=== PATIENT | male | born 1935 | race Caucasian/White ===

== ENCOUNTER → 2017-11-19 | Outpatient (CLI) | payer MEDICARE ==
[~2017-11-19] MED LIST: ASPI-586 PO; GLIM4TAB PO; HYDR-34 PO; LEVO137T2 PO; METF500T5 PO; OMEP20TA7 PO; PANT40TA3 PO; SIMV20TA3 PO; SITA100T12 PO; TRIA1CAP4 PO
--- NOTE | 2017-11-19 11:02 | Diagnostic Imaging Report ---
INDICATION: Right upper quadrant pain. TECHNIQUE: Gallbladder sonography performed in routine fashion. FINDINGS: The liver shows normal echogenicity and no focal lesions. Portal vein is patent with flow in the normal direction toward the liver. Gallbladder shows no significant wall thickening. There is a question of stone or stones in the gallbladder neck. Common duct was not well-seen due to overlying gas. Pancreas is also obscured due to overlying gas. Right kidney measured 11.3 cm in length. There is a 2.9 cm cyst in the right kidney superiorly and a small 1 cm cyst inferiorly in the right kidney. There is no free fluid. IMPRESSION: Limited study. There appears to be a stone or stones in the gallbladder neck, there does not appear to be significant gallbladder wall thickening. The common duct was not well seen. If there is clinical suspicion of cholecystitis, consider nuclear hepatobiliary study. There are benign cysts in the right kidney. There is no ascites. Dictated by: Dictated on workstation # [id number]
== END ==
LOC: RAD 08:35
PROVIDERS: ATTEND Surgery
DX: N28.1 Cyst of kidney, acquired (principal)
CPT/HCPCS: 76705

== ENCOUNTER 2017-12-01 05:32 | Outpatient (CLI) | payer MEDICARE ==
[~2017-12-01] VITALS: Ht 177.8 cm; Wt 76.7 kg
[2017-12-01] MEDS ORDERED: TRIA1CAP4 PO (10:54)
[2017-12-01] MEDS ORDERED: PANT40TA3 PO (10:54)
[2017-12-01] MEDS ORDERED: ASPI-586 PO (10:54)
[2017-12-01] MEDS ORDERED: SITA100T12 PO (10:54)
[2017-12-01] MEDS ORDERED: GLIM4TAB PO (10:54)
[2017-12-01] MEDS ORDERED: METF500T5 PO (10:54)
[2017-12-01] MEDS ORDERED: SIMV20TA3 PO (10:54)
[2017-12-01] MEDS ORDERED: OMEP20TA7 PO (10:54)
[2017-12-01] MEDS ORDERED: LEVO137T2 PO (10:54)
== END 2017-12-01 12:08 | disposition home or self-care (01) ==
LOC: PREOP 05:32
PROVIDERS: ATTEND Surgery
DX: Z01.818 Encounter for other preprocedural examination (principal)

== ENCOUNTER 2017-12-03 06:26 | Day surgery (SDC) | payer MEDICARE ==
[~2017-12-03] VITALS: Ht 177.8 cm; Wt 77.1 kg
[~2017-12-03 06:26] MED LIST changes: -HYDR-34 PO
[2017-12-03 06:45] VITALS: BP 137/78
[2017-12-03] MEDS ORDERED: CLINDAMYCIN 600 MG/50 ML IVPB 50 ML IV ONE (06:45)
[2017-12-03] MEDS: LACTATED RINGERS 1,000 ML IV PRN ×2 (07:02→10:28)
[2017-12-03 07:09] LABS: BASOPHILS % (AUTO) 0 % (0-10); EOSINOPHILS # (AUTO) 0.1 10^3/uL (0.0-0.3); EOSINOPHILS % (AUTO) 1 % (0-10); HEMATOCRIT 42 % (40-54); HEMOGLOBIN 14.4 G/DL (13.3-17.7); LYMPHOCYTES # (AUTO) 1.1 X 10^3 (1.0-4.0); LYMPHOCYTES % (AUTO) 16 % (12-44); MEAN CORPUSCULAR HEMOGLOBIN 27 PG (25-34); MEAN CORPUSCULAR HGB CONC 34 G/DL (32-36); MEAN CORPUSCULAR VOLUME 79 FL (80-99); MEAN PLATELET VOLUME 10.2 FL (7.4-10.4); MONOCYTES # (AUTO) 0.6 X 10^3 (0.0-1.0); MONOCYTES % (AUTO) 9 % (0-12); NEUTROPHILS # (AUTO) 5.2 X 10^3 (1.8-7.8); NEUTROPHILS % (AUTO) 74 % (42-75); PLATELET COUNT 165 10^3/uL (130-400); RED BLOOD COUNT 5.33 10^6/uL (4.35-5.85); RED CELL DISTRIBUTION WIDTH 14.7 % (10.0-14.5)
--- NOTE | 2017-12-03 08:09 | Progress Note-Pre Operative ---
Pre-Operative Progress Note H&P Reviewed The H&P was reviewed, patient examined and no changes noted. Date Seen by Provider: Dec 03, 2017 Time Seen by Provider: 08:00 Date H&P Reviewed: Dec 03, 2017 Time H&P Reviewed: 08:05 Pre-Operative Diagnosis: Chronic Calculous cholecystitis BECKY BARTHOLOMEW APRN Dec 03, 2017 8:09 am
[2017-12-03] MEDS ORDERED: ACETAMINOPHEN 325 MG TABLET PO PRN (08:15)
[2017-12-03] MEDS ORDERED: ONDANSETRON 4 MG/2 ML (SDV) Z0FRAN IVP PRN ×2 (08:15→11:30)
[2017-12-03] MEDS ORDERED: morphine INJ 10 MG/ML 1ML (SYR OR VIAL) IVP PRN ×2 (08:15→11:30)
[2017-12-03] MEDS ORDERED: HYDROcodone/APAP 5 MG/325 MG (LORTAB) TAB PO ONE (08:15)
[2017-12-03] MEDS ORDERED: BUP/EPI 0.5% 1:200,000 (SENSORCAINE) 30 ML VIAL ONE (09:00)
[2017-12-03] MEDS ORDERED: fentaNYL INJECTION 100 MCG/2 ML AMP ONE ×2 (09:24→10:53)
[2017-12-03] MEDS ORDERED: ONDANSETRON 4 MG/2 ML (SDV) Z0FRAN ONE (09:24)
[2017-12-03] MEDS ORDERED: DEXAMETHASONE 10 MG/ML (DECADRON) 1 ML VIAL ONE (09:24)
[2017-12-03] MEDS ORDERED: LIDOCAINE JELLY 2% (XYLOCAINE) 5 ML TUBE ONE (09:24)
[2017-12-03] MEDS ORDERED: LIDOCAINE PF 2% 5 ML (XYLOCAINE) VIAL ONE (09:24)
[2017-12-03] MEDS ORDERED: proPOfol 200 MG/20 ML (DIPRIVAN) VIAL IV ONE (09:24)
[2017-12-03] MEDS ORDERED: SEVOFLURANE (ULTANE) 15 ML INHAL SOLN ONE ×4 (09:24→10:51)
[2017-12-03] MEDS ORDERED: MIDAZOLAM 2 MG/2 ML (VERSED) VIAL ONE (09:24)
[2017-12-03] MEDS ORDERED: ROCURONIUM 10 MG/ML 5 ML SYRINGE IV ONE (09:26)
[2017-12-03] MEDS ORDERED: FAMOTIDINE 20MG/2ML IV (PEPCID) IVP ONE (09:30)
[2017-12-03] MEDS ORDERED: GLYCOPYRROLATE 0.2 MG/ML (ROBINUL) 2 ML VIAL ONE (10:59)
[2017-12-03] MEDS ORDERED: NEOSTIGMINE 1 MG/ML 5 ML SYRINGE ONE (10:59)
--- NOTE | 2017-12-03 11:09 | Progress Note-Post Operative ---
Post-Operative Progess Note Surgeon (s)/Psychologist Counseling (s) Surgeon DAMRAIS RENEE MD Psychologist Counseling: josé manuel ochoa LEAD BASED PAINT TECHNICIAN Pre-Operative Diagnosis Chronic Calculous cholecystitis Post-Operative Diagnosis same Procedure & Operative Findings Date of Procedure 12/03/17 Procedure Performed/Findings laparoscopic cholecystectomy Anesthesia Type GET Estimated Blood Loss Estimated blood loss (mL): minimal Specimens/Packing Specimens Removed gallbladder DAMARIS RENEE MD Dec 03, 2017 11:09 am
[2017-12-03] MEDS ORDERED: HYDR-34 PO (11:12)
--- NOTE | 2017-12-03 11:13 | Discharge Inst-Surgical ---
D/C Lap Instructions-VÍCTOR New, Converted, or Re-Newed RX: RX on Chart Follow Up Appt in 2 weeks Activity as tolerated No driving for 24 hours No driving while on pain medications Incentive Spirometry use every 2 hours while awake Regular Diet Symptoms to Report: Fever over 101 degree F, Nausea/Vomiting Infection Signs and Symptoms to report: Increased redness, Foul odor of wound, Increased drainage Bathing instructions: May shower Operative Area Clean/Dry; Keep incision clean/dry If any problems/questions: Contact your physician or go to Emergency Room DAMARIS RENEE MD Dec 03, 2017 11:13 am
[2017-12-03 12:10] VITALS: BP 143/82
[2017-12-03 12:40] VITALS: BP 143/77
[2017-12-03 13:20] VITALS: BP 142/86
[2017-12-03 13:35] VITALS: BP 142/86
--- NOTE | 2017-12-03 13:48 | Anesthesia-General Post-Op ---
General Patient Condition Mental Status/LOC: Same as Preop Cardiovascular: Satisfactory Nausea/Vomiting: Absent Respiratory: Satisfactory Pain: Controlled Complications: Absent Post Op Complications Complications None Follow Up Care/Instructions Patient Instructions None needed. Anesthesia/Patient Condition Patient Condition Patient is doing well, no complaints, stable vital signs, no apparent adverse anesthesia problems. No complications reported per nursing. FAUZIA CANTU CRNA Dec 03, 2017 13:48
--- NOTE | 2017-12-03 16:18 | OPERATIVE REPORT ---
DATE OF SERVICE: 12/03/2017 ATTENDING PRIMARY CARE PHYSICIAN: Dr. Ross. PREOPERATIVE DIAGNOSIS: Symptomatic chronic calculous cholecystitis. POSTOPERATIVE DIAGNOSIS: Symptomatic chronic calculous cholecystitis. PROCEDURE PERFORMED: Laparoscopic cholecystectomy. SURGEON: Damaris Renee MD. SEDIMENTATIONIST: Luis Alberto STREET ANESTHESIA: General endotracheal. ESTIMATED BLOOD LOSS: Minimal. FINDINGS: Gallbladder wall inflammation as well as multiple gallstones. A moderate sized hiatal hernia was also identified. DISPOSITION: The patient tolerated the procedure well. INDICATIONS: The patient is an 82-year-old male with a known history of gastroesophageal reflux disease as well as a hiatal hernia identified on an EGD which was done this year. He also underwent a colonoscopy where 2 polyps identified, one in the descending colon and one in the transverse colon, which were both benign tubular adenomas. She has had pain in the upper abdomen as well as episodes of nausea and regurgitation, however, the regurgitation is not new. Ultrasound was performed which did show multiple gallstones. DESCRIPTION OF PROCEDURE: The patient was brought to the operating room, laid supine on the table. After adequate IV pain and sedating medications and general endotracheal intubation, the abdomen was prepped and draped in standard surgical fashion. A 0.5% Marcaine with epinephrine was then used to incise overlying skin in the left upper abdominal quadrant. A small transverse skin incision made using a 15-blade. An #0 silk suture was applied to the medial aspect of the incision for retraction and a Veress needle inserted with a low opening pressure of 0 mmHg. The abdomen was then desufflated to 15 mmHg pressure. Veress needle removed and a 5 mm Xcel trocar placed followed by a 5 mm 45 degree angle laparoscope visualizing the peritoneal cavity. A 4-quadrant abdominal exploration was performed. There was gallbladder wall dilatation as well as omental adhesions to the gallbladder consistent with chronic cholecystitis. Liver appeared normal. There was a moderate-sized hiatal hernia identified as well. Under direct visualization, we then proceed to place a supraumbilical 10 mm port after the skin and peritoneal lining were anesthetized using 0.5% Marcaine with epinephrine and a transverse skin incision made using 15-blade. In a similar manner, a right upper abdominal quadrant 5 mm port was placed. The patient was then placed in reverse Trendelenburg position as well as plane right side up, left side down. The fundus of the gallbladder was retracted anteriorly and superiorly. The omental adhesions were then taken down using electrocautery and hook instrument. The hepatoduodenal ligament was then opened using electrocautery and hook instrument as well as blunt dissection. The entire critical view of safety was identified including the cystic duct and artery as the only two structures going into the gallbladder, triangle of Calot as well as the cystic plate behind the proximal gallbladder. A timeout was then taken and the cystic duct and artery were then clipped proximally, distally and cut with EndoShears. The gallbladder was then dissected off the liver bed using electrocautery and the hook instrument with visualization of good hemostasis as well as no leaking ducts of Luschka. The gallbladder was removed through the 10 mm port site using an EndoCatch bag. The 10 mm port site fascia and peritoneum were then closed under direct visualization using a Stoney-Luna device and an #0 Vicryl suture. The abdomen was then desufflated and the remaining ports removed. All skin incisions were closed using 4-0 Monocryl running subcuticular sutures. Wounds were then cleaned and covered. The patient tolerated the procedure well. We will start IV and oral pain medication as well as a clear liquid diet. Once tolerating clears, has good pain control with oral pain medications, ambulating well, we will discharge her home. Job ID: [id number] DocumentID: [id number] Dictated Date: 12/03/2017 11:29:39 Cane Furniture Maker Date: 12/03/2017 16:17:33 Dictated By: DAMARIS RENEE MD MTDD
== END 2017-12-03 13:35 | disposition home or self-care (01) ==
LOC: SDC 06:26
PROVIDERS: ATTEND Surgery
DX: K80.10 Calculus of gallbladder with chronic cholecystitis without obstruction (principal); K44.9 Diaphragmatic hernia without obstruction or gangrene; E11.9 Type 2 diabetes mellitus without complications; I10 Essential (primary) hypertension; I25.10 Atherosclerotic heart disease of native coronary artery without angina pectoris; K21.9 Gastro-esophageal reflux disease without esophagitis; Z79.82 Long term (current) use of aspirin; Z79.84 Long term (current) use of oral hypoglycemic drugs; Z95.5 Presence of coronary angioplasty implant and graft
CPT/HCPCS: 36415; 82962; 85025; 87081; 93005; 94664

== ENCOUNTER → 2018-04-07 | Outpatient (CLI) | payer MEDICARE ==
[~2018-04-07] MED LIST changes: +HYDR-34 PO; +METF-397 PO; -METF500T5 PO
== END ==
LOC: CARD 08:35
PROVIDERS: ATTEND Internal Medicine Cardiovascular Disease
DX: I35.8 Other nonrheumatic aortic valve disorders (principal); I25.10 Atherosclerotic heart disease of native coronary artery without angina pectoris; I10 Essential (primary) hypertension; I47.2 Ventricular tachycardia; I49.3 Ventricular premature depolarization; E11.9 Type 2 diabetes mellitus without complications; I07.1 Rheumatic tricuspid insufficiency
CPT/HCPCS: 93306

== ENCOUNTER → 2018-04-14 | Outpatient (CLI) | payer MEDICARE ==
[~2018-04-14] MED LIST changes: +CATHETER FLUSH 10 ML SYR IV PRN; +REGADENOSON 0.4 MG/5 ML SYR (LEXISCAN) IV ONE
[2018-04-14 09:06] VITALS: BP 142/84
[2018-04-14 09:10] VITALS: BP 147/84
--- NOTE | 2018-04-14 18:36 | STRESS TEST ---
DATE OF SERVICE: 04/14/2018 LEXISCAN MYOVIEW STRESS TEST REPORT REFERRING PHYSICIAN: Dr. Ross. Baseline heart rate is 92, baseline blood pressure 151/87. Baseline EKG is sinus rhythm with no ischemic changes. In summary, the patient received 10.5 mCi of technetium-99 Myoview and the resting images were obtained. Then, the patient received 0.4 mg of Lexiscan followed by 30.3 mCi of technetium-99 Myoview. Throughout the test, there were no EKG changes. The resting and stress images were reviewed and compared in the short axis, horizontal long axis, and vertical long axis views. Review of the images showed diaphragmatic attenuation with good radiotracer uptake, no significant ischemia or infarction. SSS is 2, SDS 1, TID value 1.15. On the gated images, the left ventricle appeared to be normal size with normal contractility. Calculated ejection fraction 62%. CONCLUSION: 1. The patient tolerated Lexiscan well. 2. Diaphragmatic attenuation with typical male pattern with no significant ischemia or infarction on SPECT images. 3. Normal left ventricular size with normal contractility. Calculated ejection fraction 62%. Job ID: [id number] DocumentID: [id number] Dictated Date: 04/14/2018 13:22:28 Pulp Making Plant Operator Date: 04/14/2018 18:36:03 Dictated By: LUZ SORIANO MD
== END ==
LOC: CARD 06:41
PROVIDERS: ATTEND Internal Medicine Cardiovascular Disease
DX: I35.8 Other nonrheumatic aortic valve disorders (principal); I25.10 Atherosclerotic heart disease of native coronary artery without angina pectoris; I10 Essential (primary) hypertension; I47.2 Ventricular tachycardia; I49.3 Ventricular premature depolarization; E11.9 Type 2 diabetes mellitus without complications
CPT/HCPCS: 78452; 93017

== ENCOUNTER 2018-07-05 05:48 | Outpatient (CLI) | payer MEDICARE ==
[~2018-07-05] VITALS: Ht 177.8 cm; Wt 79.8 kg
[~2018-07-05 05:48] MED LIST changes: -CATHETER FLUSH 10 ML SYR IV PRN; -REGADENOSON 0.4 MG/5 ML SYR (LEXISCAN) IV ONE
== END 2018-07-05 16:17 | disposition home or self-care (01) ==
LOC: PREOP 05:48
PROVIDERS: ATTEND Surgery
DX: Z01.818 Encounter for other preprocedural examination (principal)

== ENCOUNTER 2018-07-09 10:23 | Day surgery (SDC) | payer MEDICARE ==
[~2018-07-09] VITALS: Ht 177.8 cm; Wt 79.8 kg
[2018-07-09] MEDS ORDERED: NS IV 500 ML 500 ML IV PRN (10:33)
[2018-07-09] MEDS ORDERED: NS IV 500 ML 500 ML ONE (10:37)
[2018-07-09] MEDS ORDERED: LIDOCAINE JELLY 2% 6 ML SYRINGE MM PRN (10:45)
[2018-07-09] MEDS ORDERED: fentaNYL INJECTION 100 MCG/2 ML AMP IVP ONE (10:45)
[2018-07-09] MEDS ORDERED: MIDAZOLAM 2 MG/2 ML (VERSED) VIAL IVP ONE (10:45)
[2018-07-09] MEDS ORDERED: HURRICAINE EXT TUBE (BENZOCAINE) XX PRN (10:45)
[2018-07-09] MEDS ORDERED: HURRICAINE EXT TUBE (BENZOCAINE) ONE (10:52)
[2018-07-09] MEDS ORDERED: MIDAZOLAM 2 MG/2 ML (VERSED) VIAL ONE ×3 (10:52→11:07)
[2018-07-09] MEDS ORDERED: LIDOCAINE JELLY 2% 6 ML SYRINGE ONE (10:52)
[2018-07-09] MEDS ORDERED: fentaNYL INJECTION 100 MCG/2 ML AMP ONE (10:52)
[2018-07-09 11:35] VITALS: BP 124/68
--- NOTE | 2018-07-09 11:38 | Conscious Sedation/ASA ---
Conscious Sedation Pre-Proced Time 10:00 ASA Score 2 For ASA 3 and 4: Consider anesthesia and medical clearance. Also, for patients with a history of failed moderate sedation consider anesthesia. Airway Lungs Heart ASA score ASA 1: a normal healthy patient ASA 2: a patient with a mild systemic disease (mid diabetes, controlled hypertension, obesity ASA 3: a patient with a severe systemic disease that limits activity (angina , COPD, prior Myocardial infarction) ASA 4: a patient with an incapacitating disease that is a constant threat to life (CHF, renal failure) ASA 5: a moribund patient not expected to survive 24 hrs. (ruptured aneurysm) ASA 6: a declared brain- patient whose organs are being harvested. For emergent operations, add the letter E after the classification Mallampati Classification Grade 2 Sedation Plan Analgesia, Amnesia, Plan communicated to team members, Discussed options with patient/fam, Discussed risks with patient/fam The patient is an appropriate candidate to undergo the planned procedure, sedation, and anesthesia. The patient immediately re-assessed prior to indication. DAMARIS RENEE MD Jul 09, 2018 11:38
--- NOTE | 2018-07-09 11:39 | Progress Note-Pre Operative ---
Pre-Operative Progress Note H&P Reviewed The H&P was reviewed, patient examined and no changes noted. Date Seen by Provider: Jul 09, 2018 Time Seen by Provider: 10:00 Date H&P Reviewed: Jul 09, 2018 Time H&P Reviewed: 10:00 Pre-Operative Diagnosis: persistent GERD,regurgitation with hx hiatal hernia DAMARIS RENEE MD Jul 09, 2018 11:38
--- NOTE | 2018-07-09 11:41 | Progress Note-Post Operative ---
Post-Operative Progess Note Surgeon (s)/Bag Checker (s) Surgeon DAMARIS RENEE MD Bag Checker: none Pre-Operative Diagnosis persistent GERD,regurgitation with hx hiatal hernia Post-Operative Diagnosis reflux esophagitis(stage 2), moderate hiatal hernia(3cm), moderate gastritis. Procedure & Operative Findings Date of Procedure 07/09/18 Procedure Performed/Findings EGD with bx. Anesthesia Type CS Estimated Blood Loss Estimated blood loss (mL): minimal Specimens/Packing Specimens Removed ge jxn, antrum DAMARIS RENEE MD Jul 09, 2018 11:41
[2018-07-09] MEDS ORDERED: SUCR1TAB36 PO (11:43)
[2018-07-09] MEDS ORDERED: OMEP40CA36 PO (11:43)
--- NOTE | 2018-07-09 11:44 | Discharge Inst-Surgical ---
D/C Lap Instructions-KIDO New, Converted, or Re-Newed RX: RX on Chart Will call for Follow Up Activity as tolerated High Fiber Diet 25g or more per day Avoid Alcohol, Caffeine, Spicy [place] and Acid foods. Drink 64 fluid oz or more of fluids per day. Symptoms to Report: Fever over 101 degree F, Nausea/Vomiting If any problems/questions: Contact your physician or go to Emergency Room DAMARIS RENEE MD Jul 09, 2018 11:44
[2018-07-09 12:05] VITALS: BP 133/83
[2018-07-09 12:20] VITALS: BP 133/83
--- NOTE | 2018-07-09 19:02 | OPERATIVE REPORT ---
DATE OF SERVICE: 07/09/2018 ATTENDING PRIMARY CARE PHYSICIAN: Dr. Roque Ross. PREOPERATIVE DIAGNOSES: Gastroesophageal reflux disease, regurgitation and dysphagia. POSTOPERATIVE DIAGNOSES: Reflux esophagitis stage II, moderate size hiatal hernia approximately 3 cm in size, which appears to be a type 1 hiatal hernia. Moderate gastritis. No distal obstructions. PROCEDURE: EGD with biopsy. SURGEON: Damaris Renee MD. ANESTHESIA: Conscious sedation. ESTIMATED BLOOD LOSS: Minimal. FINDINGS: As above in the postop. DISPOSITION: The patient tolerated the procedure well. INDICATIONS: The patient is an 82-year-old male who has had issues with nausea and vomiting as well as regurgitation. He had reported that after eating a meal he would also have abdominal distention and bloating. He did have a positive HIDA scan and did undergo a laparoscopic cholecystectomy November 2017. This gentleman has had a longstanding history of gastroesophageal reflux disease, which has progressed to regurgitation as well as dysphagia for some foods. He did undergo an EGD in 2018 which did show a hiatal hernia of moderate size. He is currently on Protonix and omeprazole and states that this was initially effective; however, he has had a recurrence of symptoms. DESCRIPTION OF PROCEDURE: The patient was brought to the endoscopy suite and laid in the left lateral decubitus position. After adequate IV pain and sedative medications and conscious sedation anesthesia, the mouthpiece was applied. Endoscope was placed in the mouth, visualizing the pharynx and hypopharyngeal region. Vocal cords, epiglottis and vallecula identified and appeared to be normal. The endoscope was gently intubated in the esophageal opening and esophagus insufflated. The endoscope was then advanced to the first, second and third portion of the esophagus at the level of the GE junction and reflux esophagitis stage II identified. The GE junction was also slightly intrathoracic consistent with a type 1 sliding hiatal hernia. The endoscope was then advanced in the stomach and endoscope retroflexed, visualizing a hiatal hernia, which was moderate in size approximately 3 cm. There was a moderate severity gastritis, which appeared to be more diffuse. There were no formal ulcerations, polyps or any neoplasms. A biopsy was taken of the antrum to rule out H. pylori with visualization of good hemostasis. The endoscope was then advanced to the pylorus and the first and second portion of the duodenum with no ulcers identified as well as no distal obstructions. The endoscope was slowly withdrawn while taking a second look and suctioning of residual air with no additional findings. The patient tolerated the procedure well. This gentleman continues to be symptomatic despite maximal medical therapy, we will increase as omeprazole dosing to 40 mg daily along with her Protonix and Carafate 1 gram q.i.d. for the next 2 weeks and also on a p.r.n. basis. He is otherwise healthy and may benefit from a hiatal hernia repair for symptomatic relief. He discussed that he was interested in this as well and we will proceed with an esophageal manometry to rule out any esophageal dysmotility disorders before proceeding with an antireflux procedure and hiatal hernia repair. Job ID: [id number] DocumentID: [id number] Dictated Date: 07/09/2018 11:27:33 Lunch Wagon Operator Date: 07/09/2018 19:01:34 Dictated By: DAMARIS RENEE MD
== END 2018-07-09 12:15 | disposition home or self-care (01) ==
LOC: ENDO 10:23
PROVIDERS: ATTEND Surgery
DX: K21.0 Gastro-esophageal reflux disease with esophagitis (principal); K44.9 Diaphragmatic hernia without obstruction or gangrene; K29.70 Gastritis, unspecified, without bleeding; E03.9 Hypothyroidism, unspecified; E78.00 Pure hypercholesterolemia, unspecified; I25.10 Atherosclerotic heart disease of native coronary artery without angina pectoris; E11.9 Type 2 diabetes mellitus without complications; Z95.5 Presence of coronary angioplasty implant and graft; Z79.02 Long term (current) use of antithrombotics/antiplatelets; Z79.82 Long term (current) use of aspirin; Z79.84 Long term (current) use of oral hypoglycemic drugs; Z79.899 Other long term (current) drug therapy

== ENCOUNTER 2018-08-23 09:42 | Outpatient (CLI) | payer MEDICARE ==
[~2018-08-23] VITALS: Ht 177.8 cm; Wt 82.6 kg
[~2018-08-23 09:42] MED LIST changes: +OMEP40CA36 PO; +SUCR1TAB36 PO
[2018-08-23 10:00] VITALS: BP 126/75
[2018-08-23] MEDS ORDERED: OMEP20TA7 PO (10:12)
[2018-08-23] MEDS ORDERED: SUCR1TAB PO (10:12)
[2018-08-23 10:34] LABS: BASOPHILS % (AUTO) 0 % (0-10); EOSINOPHILS # (AUTO) 0.1 10^3/uL (0.0-0.3); EOSINOPHILS % (AUTO) 2 % (0-10); HEMATOCRIT 40 % (40-54); HEMOGLOBIN 13.2 G/DL (13.3-17.7); LYMPHOCYTES # (AUTO) 0.7 X 10^3 (1.0-4.0); LYMPHOCYTES % (AUTO) 14 % (12-44); MEAN CORPUSCULAR HEMOGLOBIN 26 PG (25-34); MEAN CORPUSCULAR HGB CONC 33 G/DL (32-36); MEAN CORPUSCULAR VOLUME 80 FL (80-99); MONOCYTES # (AUTO) 0.4 X 10^3 (0.0-1.0); MONOCYTES % (AUTO) 7 % (0-12); NEUTROPHILS % (AUTO) 77 % (42-75); PLATELET COUNT 173 10^3/uL (130-400); RED CELL DISTRIBUTION WIDTH 14.3 % (10.0-14.5); WHITE BLOOD COUNT 5.2 10^3/uL (4.3-11.0)
[2018-08-23 10:50] LABS: CALCIUM 9.4 MG/DL (8.5-10.1); CREATININE SERUM 1.19 MG/DL (0.60-1.30); POTASSIUM 3.8 MMOL/L (3.6-5.0)
--- NOTE | 2018-08-23 10:51 | Diagnostic Imaging Report ---
INDICATION: Preop screening prior to hiatal hernia repair. PA and lateral views of the chest were obtained. FINDINGS: The heart size, mediastinal configuration, and pulmonary vascularity are within normal limits. There is no pleural effusion, pneumothorax, or pneumonia. The osseous structures are unremarkable. IMPRESSION: No acute cardiopulmonary abnormality. Dictated by: Dictated on workstation # [id number]
[2018-08-23 10:59] LABS: BILIRUBIN,URINE NEGATIVE (NEGATIVE); CLARITY,URINE CLEAR; COLOR,URINE YELLOW; GLUCOSE, URINE (UA) NEGATIVE (NEGATIVE); KETONES,URINE NEGATIVE (NEGATIVE); LEUKOCYTE ESTERASE ,URINE NEGATIVE (NEGATIVE); NITRITE,URINE NEGATIVE (NEGATIVE); PH,URINE 6.5 (5-9); PROTEIN,URINE NEGATIVE (NEGATIVE); UROBILINOGEN,URINE NORMAL (NORMAL)
[2018-08-23 11:14] LABS: BACTERIA,URINE NEGATIVE /HPF
[2018-08-23] MEDS ORDERED: OMEP40CA36 PO (11:18)
[2018-08-23] MEDS ORDERED: TRIA1TAB2 PO (11:18)
== END 2018-08-23 10:40 | disposition home or self-care (01) ==
LOC: PREOP 09:42
PROVIDERS: ATTEND Surgery
DX: Z01.811 Encounter for preprocedural respiratory examination (principal); Z01.812 Encounter for preprocedural laboratory examination; Z11.2 Encounter for screening for other bacterial diseases; K44.9 Diaphragmatic hernia without obstruction or gangrene
CPT/HCPCS: 36415; 71046; 80048; 81000; 85025; 87081

== ENCOUNTER 2018-08-26 09:15 | Day surgery (SDC) | payer MEDICARE ==
--- NOTE | 2018-08-23 11:19 | NUR ---
MED LIST SENT OVER FROM PREOP, I VERIFIED WITH KIT-DENISSE IN [place] THE PRESCRIPTION MEDICATIONS. [facility] FILLED: 08-19-18 TRIAMTERENE HCTZ 37.5-25MG TAB DAILY 08-18-18 GLIMEPIRIDE 4MG BID 08-09-18 SIMVASTATIN 20MG DAILY 08-08-18 METFORMIN 500MG BID 08-08-18 PANTOPRAZOLE 40MG DAILY 07-09-18 CARAFATE 1MG (TAKES PRN) 07-09-18 OMEPRAZOLE 40MG DAILY #90 ([facility] HAS NOT FILLED 20MG) 06-22-18 LEVOTHYROXINE 137MCG DAILY #90 06-15-18 JANUVIA 100MG DAILY HE TAKES ASPIRIN OTC
[2018-08-26] VITALS (8 sets, daily range): BP systolic 148–186; BP diastolic 76–93
[~2018-08-26] VITALS: Ht 177.8 cm; Wt 82.6 kg
[~2018-08-26 09:15] MED LIST changes: +SUCR1TAB PO; +TRIA1TAB2 PO
[2018-08-26] MEDS ORDERED: NS IV 1000 ML 1,000 ML IV SCH (09:22)
--- NOTE | 2018-08-26 09:22 | Progress Note-Pre Operative ---
Pre-Operative Progress Note H&P Reviewed The H&P was reviewed, patient examined and no changes noted. Date Seen by Provider: August 26, 2018 Time Seen by Provider: 09:20 Date H&P Reviewed: August 26, 2018 Time H&P Reviewed: 09:20 Pre-Operative Diagnosis: symptomatic type 1 hiatal hernia DAMARIS RENEE MD August 26, 2018 09:22
[2018-08-26] MEDS ORDERED: oxyCODONE 5 MG/5 ML ORAL SOLN (roxiCODONE) 5 ML UDC PO PRN (09:30)
[2018-08-26] MEDS ORDERED: fentaNYL INJECTION 1,000 MCG in NS (IVPB) 80 ML IV SCH (09:30)
[2018-08-26] MEDS ORDERED: RT-ALBUTEROL SULF 2.5 MG/3 ML PRE-MIX VIAL INH SCH (09:30)
[2018-08-26] MEDS ORDERED: diphenhydrAMINE 50 MG/ML INJ (BENADRYL) IVP PRN (09:30)
[2018-08-26] MEDS ORDERED: ONDANSETRON 4 MG/2 ML (SDV) Z0FRAN IV PRN (09:30)
[2018-08-26] MEDS ORDERED: diphenhydrAMINE 50 MG/ML INJ (BENADRYL) IV PRN (09:30)
[2018-08-26] MEDS ORDERED: METOCLOPRAMIDE INJ 10 MG/2 ML (REGLAN) IV PRN (09:30)
[2018-08-26] MEDS ORDERED: NALOXONE 0.4 MG/ML 1 ML (NARCAN) VIAL IV PRN (09:30)
[2018-08-26] MEDS ORDERED: ONDN4T PO (09:32)
[2018-08-26] MEDS ORDERED: HYDR473S50 PO (09:32)
--- NOTE | 2018-08-26 09:33 | Discharge Inst-Surgical ---
D/C Lap Instructions-VÍCTOR New, Converted, or Re-Newed RX: RX on Chart Follow Up Appt in 2 weeks Activity as tolerated No driving for 24 hours No driving while on pain medications Incentive Spirometry use every 2 hours while awake clear liquid diet 1 week, then mechanical soft 1 week, then diet as tolerated Symptoms to Report: Fever over 101 degree F, Nausea/Vomiting Infection Signs and Symptoms to report: Increased redness, Foul odor of wound, Increased drainage Bathing instructions: May shower Operative Area Clean/Dry; Keep incision clean/dry If any problems/questions: Contact your physician or go to Emergency Room DAMARIS RENEE MD August 26, 2018 09:33
[2018-08-26] MEDS: LACTATED RINGERS 1,000 ML IV PRN ×3 (09:44→15:40)
[2018-08-26] MEDS ORDERED: CLINDAMYCIN 600 MG/50 ML IVPB 50 ML IV ONE (09:45)
[2018-08-26] MEDS ORDERED: SEVOFLURANE (ULTANE) 15 ML INHAL SOLN ONE ×8 (09:50→16:33)
[2018-08-26] MEDS ORDERED: ROCURONIUM 10 MG/ML 5 ML SYRINGE IV ONE ×2 (09:50→15:06)
[2018-08-26] MEDS ORDERED: ONDANSETRON 4 MG/2 ML (SDV) Z0FRAN ONE ×2 (09:50→15:06)
[2018-08-26] MEDS ORDERED: DEXAMETHASONE 10 MG/ML (DECADRON) 1 ML VIAL ONE (09:50)
[2018-08-26] MEDS ORDERED: proPOfol 200 MG/20 ML (DIPRIVAN) VIAL IV ONE ×2 (09:50→15:06)
[2018-08-26] MEDS ORDERED: fentaNYL INJECTION 100 MCG/2 ML AMP ONE (09:50)
[2018-08-26] MEDS ORDERED: SUCCINYLCHOLINE INJ 100 MG/5 ML SYR ONE (09:50)
[2018-08-26] MEDS ORDERED: BUP/EPI 0.5% 1:200,000 (SENSORCAINE) 30 ML VIAL ONE (09:52)
[2018-08-26] MEDS ORDERED: FAMOTIDINE 20MG/2ML IV (PEPCID) ONE (12:16)
[2018-08-26] MEDS ORDERED: FAMOTIDINE 20MG/2ML IV (PEPCID) IV ONE (12:30)
[2018-08-26] MEDS ORDERED: MIDAZOLAM 2 MG/2 ML (VERSED) VIAL IVP ONE (12:45)
[2018-08-26] MEDS ORDERED: MIDAZOLAM 2 MG/2 ML (VERSED) VIAL ONE (12:45)
[2018-08-26] MEDS: CLINDAMYCIN 600 MG/50 ML IVPB 50 ML IV SCH ×2 (14:54→21:22)
[2018-08-26] MEDS ORDERED: LIDOCAINE PF 2% 5 ML (XYLOCAINE) VIAL ONE (15:06)
[2018-08-26] MEDS ORDERED: PHENYLEPHRINE 100 MCG/ML 10 ML (ANESTHESIA) SYR ONE (15:11)
[2018-08-26] MEDS ORDERED: morphine INJ 10 MG/ML 1ML (SYR OR VIAL) ONE (16:03)
[2018-08-26] MEDS ORDERED: GLYCOPYRROLATE 0.2 MG/ML (ROBINUL) 2 ML VIAL ONE (16:27)
[2018-08-26] MEDS ORDERED: NEOSTIGMINE 1 MG/ML 5 ML SYRINGE ONE (16:27)
--- NOTE | 2018-08-26 16:53 | Progress Note-Post Operative ---
Post-Operative Progess Note Surgeon (s)/Environmental Research Project Manager (s) Surgeon DAMARIS RENEE MD Environmental Research Project Manager: josé manuel ochoa AUDIENCE COORDINATOR Pre-Operative Diagnosis symptomatic type 1 hiatal hernia Post-Operative Diagnosis same Procedure & Operative Findings Date of Procedure 08/26/18 Procedure Performed/Findings laparoscopic hiatal hernia repair and toupet 270 degree wrap. Anesthesia Type GET Estimated Blood Loss Estimated blood loss (mL): minimal Specimens/Packing Specimens Removed none DAMARIS RENEE MD August 26, 2018 16:53
[2018-08-26] MEDS ORDERED: morphine INJ 10 MG/ML 1ML (SYR OR VIAL) IVP ONE (17:00)
[2018-08-26] MEDS ORDERED: ONDANSETRON 4 MG/2 ML (SDV) Z0FRAN IVP PRN (17:00)
[2018-08-26] MEDS: ONDANSETRON 4 MG/2 ML (SDV) Z0FRAN IVP SCH (18:00)
[2018-08-26] MEDS: METOCLOPRAMIDE INJ 10 MG/2 ML (REGLAN) IVP SCH (18:00)
[2018-08-26] MEDS: metroNIDAZOLE 500MG/100ML IVPB 100 ML IV SCH (18:59)
[2018-08-26] MEDS ORDERED: fentaNYL INJECTION 100 MCG/2 ML AMP IVP PRN (19:45)
[2018-08-26] MEDS ORDERED: fentaNYL INJECTION 1,000 MCG in NS (IVPB) 80 ML IV PRN (20:00)
[2018-08-26] MEDS: inSUlin ASPART (NovoLOG) 1 UNIT/0.01 ML (CHARGE PER UNIT) SC SCH (21:08)
[2018-08-26] MEDS: LACTATED RINGERS 1,000 ML IV SCH ×2 (21:08→21:12)
[2018-08-26] MEDS: ENOXAPARIN 30 MG/0.3 ML (LOVENOX) SYR SC SCH (21:22)
[2018-08-27] MEDS: ONDANSETRON 4 MG/2 ML (SDV) Z0FRAN IVP SCH ×3 (00:20→11:27)
[2018-08-27] MEDS: LACTATED RINGERS 1,000 ML IV SCH ×2 (00:20→07:54)
[2018-08-27] MEDS: METOCLOPRAMIDE INJ 10 MG/2 ML (REGLAN) IVP SCH ×3 (00:20→11:27)
[2018-08-27 00:52] VITALS: BP 124/66
--- NOTE | 2018-08-27 02:16 | OPERATIVE REPORT ---
DATE OF SERVICE: 08/26/2018 ATTENDING PHYSICIAN: Dr. Ross. PREOPERATIVE DIAGNOSIS: Symptomatic large hiatal hernia. POSTOPERATIVE DIAGNOSIS: Symptomatic large hiatal hernia. PROCEDURE: Laparoscopic hiatal hernia repair and 270-degree posterior Toupet wrap. SURGEON: Damaris Renee MD SAWMILLING OPERATOR: Luis Alberto Lerma APRN. ANESTHESIA: General endotracheal. ESTIMATED BLOOD LOSS: Minimal. FINDINGS: He underwent EGDs in the past and was found to have a hiatal hernia. Initially, we thought that this was gallbladder dysfunction. DISPOSITION: The patient underwent a laparoscopic cholecystectomy in 11/2017 and states that his nausea improved; however, still had issues with dysphagia, reflux and regurgitation. He reports that this is a gradual process and is minimal in the morning; however, in the afternoon is unsure significant. Occasionally, he will have regurgitation. EGD showed a hiatal hernia, which was significant in size. He was on Protonix 40 mg daily as well as omeprazole 20 mg daily; however, continued to be symptomatic despite maximal medical therapy, which included avoid small and more frequent meals, avoidance of eating at night as well as head elevation while lying supine. He also had avoided caffeinated and alcoholic beverages as well as spicy, greasy and acidic foods. He underwent a repeat EEG on 07/09/2018 and found to have a reflux esophagitis and again a moderate size hiatal hernia approximately 3 cm in size and appeared to be a type 1 sliding hiatal hernia. The patient underwent an esophageal manometry study, which did show some deficient of affective swallows in terms of peristalsis and amplitude waveform. This was typical in chronic hiatal hernias. The recommendation by gastroenterology was that this was not an absolute contraindication and that a loose wrap could be performed. This was discussed with the patient in detail and the patient fully understood the risks and benefits and wanted to proceed with the hiatal hernia repair as well as a loose wrap due to the difficulty of his current symptoms. DESCRIPTION OF PROCEDURE: The patient was brought to the operating room, laid supine on the table. After adequate IV pain and sedative medications and general endotracheal intubation, the abdomen was prepped and draped in standard surgical fashion. A 0.5% Marcaine with epinephrine was then used to anesthetize the overlying skin in the left upper abdominal quadrant and a transverse skin incision made using a 15 blade. An 0 silk suture was applied to the medial aspect of the incision for traction and a Veress needle inserted with a low opening pressure of 0 mmHg and the abdomen was insufflated to 15 mmHg pressure. Veress needle removed and a 5 mm Xcel trocar placed followed by a 5 mm 45-degree angle laparoscope visualizing the peritoneal cavity. We cannot visualize the diaphragmatic hiatus at this time and we proceeded to place a midabdominal left of midline 10 mm port after the skin and peritoneal lining were anesthetized using 0.5% Marcaine with epinephrine and a transverse skin incision made using 15 blade. In a similar manner, a midabdominal right of midline 10 mm port was placed followed by a 5 mm right upper abdominal quadrant port. The epigastric region was then anesthetized and a tract created to the abdominal wall layers using a trocar to a 5 mm port. Through this opening, a medium sized Kameron liver retractor was placed and the left lobe of liver retracted anteriorly and superiorly. The patient was then placed in steep reverse Trendelenburg position. A moderate size hiatal hernia was identified and appeared to be a type 1 sliding hiatal hernia. We then proceeded with completely dissecting out the hernia sac using a Sonicision as well as blunt dissection. We first started at the pars flaccida and then starting anteriorly left lateral and then inferiorly identifying both jaguar of the diaphragm. Good hemostasis was observed. We then proceeded to take down the short gastric vessels using the Sonicision as well as the angle of His connective tissue fibers. The jaguar of the diaphragm was then reapproximated posteriorly over a 42-[place] bougie loosely using 2-0 Surgidac interrupted sutures. We then decided on proceeding with a Toupet posterior 270-degree wrap using the fundus of the stomach. The fundus was passed underneath the esophagus and sutured to the musculature of the esophagus as well as to the lateral diaphragm using a 2-0 Surgidac interrupted sutures. In a similar manner, the left lateral aspect of the fundus was attached to the antral left esophagus and crura using interrupted 2-0 Surgidac sutures with visualization of good hemostasis. The bougie was then removed. Good hemostasis was observed. The liver retractor was then removed and the fascia and peritoneum to the 10 mm ports were then closed under direct visualization using a Stoney-Luna device and a 0 Vicryl suture. The abdomen was desufflated and remaining ports removed. All skin incisions were closed using 4-0 Monocryl running subcuticular sutures. Wounds were then cleaned and covered with Dermabond. The patient tolerated the procedure well. We will admit him for observation and start ice chips as well as a clear liquid diet as well as a HR SYSTEMS ANALYST for pain control. We will also proceed with DVT prophylaxis with early ambulation, calf SCDs as well as Lovenox injections. Once he is tolerating at least 60 mL of liquids every 30 minutes, has adequate pain control , oral pain medications, ambulating well, we will discharge him home. We will then recommend a clear liquid diet for the next week and then transition to a phase II soft diet and then a regular diet; however, to hold off on caffeinated beverages, raw vegetables like salads as well as dry foods such as breads and crackers until 6 weeks from the surgery date. Job ID: [id number] DocumentID: [id number] Dictated Date: 08/26/2018 16:53:27 Anode Crew Supervisor Date: 08/27/2018 02:15:36 Dictated By: DAMARIS RENEE MD MTDD
[2018-08-27] MEDS: RT-ALBUTEROL SULF 2.5 MG/3 ML PRE-MIX VIAL INH SCH ×4 (02:55→14:52)
[2018-08-27] MEDS: metroNIDAZOLE 500MG/100ML IVPB 100 ML IV SCH ×2 (03:01→11:27)
[2018-08-27 03:23] VITALS: BP 144/76
[2018-08-27] MEDS: CLINDAMYCIN 600 MG/50 ML IVPB 50 ML IV SCH (06:08)
[2018-08-27] MEDS: inSUlin ASPART (NovoLOG) 1 UNIT/0.01 ML (CHARGE PER UNIT) SC SCH ×3 (06:19→16:27)
[2018-08-27 06:27] LABS: HEMOGLOBIN 12.1 G/DL (13.3-17.7); MEAN PLATELET VOLUME 10.2 FL (7.4-10.4); RED CELL DISTRIBUTION WIDTH 14.7 % (10.0-14.5)
[2018-08-27 06:47] LABS: CALCIUM 8.5 MG/DL (8.5-10.1); CREATININE SERUM 1.18 MG/DL (0.60-1.30); POTASSIUM 3.5 MMOL/L (3.6-5.0)
--- NOTE | 2018-08-27 07:20 | Anesthesia-General Post-Op ---
General Patient Condition Mental Status/LOC: Same as Preop Cardiovascular: Satisfactory Nausea/Vomiting: Absent Respiratory: Satisfactory Pain: Controlled Complications: Absent Post Op Complications Complications None Follow Up Care/Instructions Patient Instructions None needed. Anesthesia/Patient Condition Patient Condition Patient is doing well, no complaints, stable vital signs, no apparent adverse anesthesia problems. No complications reported per nursing. D/C home per [facility] [place] Criteria: Yes YAS CRUZ CRNA August 27, 2018 07:20
[2018-08-27 08:00] VITALS: BP 117/57
[2018-08-27] MEDS: ENOXAPARIN 30 MG/0.3 ML (LOVENOX) SYR SC SCH (08:51)
[2018-08-27] MEDS ORDERED: PANTOPRAZOLE 40 MG (PROTONIX) VIAL IV SCH (09:00)
[2018-08-27] MEDS ORDERED: SENNA W/DOCUSATE (SENOKOT S) TABLET PO SCH (09:00)
[2018-08-27] MEDS ORDERED: PANTOPRAZOLE 40 MG (PROTONIX) TAB PO SCH (09:00)
[2018-08-27] MEDS ORDERED: METOCLOPRAMIDE INJ 10 MG/2 ML (REGLAN) IVP PRN (09:30)
[2018-08-27] MEDS ORDERED: ONDANSETRON 4 MG/2 ML (SDV) Z0FRAN IVP PRN (09:30)
[2018-08-27 12:00] VITALS: BP 131/64
[2018-08-27 16:05] VITALS: BP 137/67
--- NOTE | 2018-08-27 16:24 | Progress Note (SOAP) ---
Subjective Date Seen by a Provider: August 27, 2018 Time Seen by a Provider: 14:15 Subjective/Events-last exam doing well. tolerating clears. pain controlled. ambulating well. Objective Exam Vital Signs Date Time Temp Pulse Resp B/P (MAP) Pulse Ox O2 Delivery O2 Flow Rate FiO2 08/27/18 16:05 99.6 116 20 137/67 (90) 92 Room Air 08/27/18 14:55 92 Room Air 08/27/18 12:00 97.5 118 18 131/64 (86) 92 Nasal Cannula 2.00 08/27/18 10:24 95 Room Air 08/27/18 09:00 96 Room Air 08/27/18 08:00 97.8 120 18 117/57 (77) 93 Nasal Cannula 2.00 08/27/18 06:42 91 Room Air 08/27/18 03:23 98.0 104 18 144/76 (98) 94 Nasal Cannula 2.00 08/27/18 02:55 92 Nasal Cannula 1.00 08/27/18 00:52 99.0 101 18 124/66 (85) 98 Nasal Cannula 2.00 08/26/18 21:25 96 Nasal Cannula 2.00 08/26/18 21:00 Nasal Cannula 3.00 08/26/18 20:15 99.3 105 18 171/85 (113) 98 Nasal Cannula 2.00 08/26/18 17:50 96 Nasal Cannula 3.00 08/26/18 17:40 97.6 16 96 Nasal Cannula 3 08/26/18 17:30 98.6 92 18 186/88 (120) 98 Room Air 08/26/18 17:30 16 96 5 08/26/18 17:20 16 97 Non Rebreather 10 08/26/18 17:10 16 97 OxyMask 10 08/26/18 17:00 16 95 OxyMask 10 08/26/18 16:49 97.2 18 96 OxyMask 10 I & O 08/27/18 07:00 Intake Total 1560 ml Output Total 340 ml Balance 1220 ml Capillary Refill : General Appearance: No Apparent Distress HEENT: PERRL/EOMI Neck: Full Range of Motion Respiratory: Lungs Clear, Decreased Breath Sounds Cardiovascular: Regular Rate, Rhythm Gastrointestinal: soft, tenderness Extremity: Normal Capillary Refill Neurologic/Psychiatric: Alert, Oriented x3 Skin: Normal Color Lymphatic: No Adenopathy Results Lab Laboratory Tests 08/26/18 21:04: Glucometer 171H 08/27/18 05:29: Glucometer 222H 08/27/18 06:10: White Blood Count 9.0, Red Blood Count 4.61, Hemoglobin 12.1L, Hematocrit 38L, Mean Corpuscular Volume 81, Mean Corpuscular Hemoglobin 26, Mean Corpuscular Hemoglobin Concent 32, Red Cell Distribution Width 14.7H, Platelet Count 145, Mean Platelet Volume 10.2, Sodium Level 136, Potassium Level 3.5L, Chloride Level 103, Carbon Dioxide Level 20L, Anion Gap 13, Blood Urea Nitrogen 14, Creatinine 1.18, Estimat Glomerular Filtration Rate 59, BUN/Creatinine Ratio 12 , Glucose Level 233H, Calcium Level 8.5 08/27/18 10:53: Glucometer 269H 08/27/18 16:10: Glucometer 222H Assessment/Plan Assessment/Plan Assess & Plan/Chief Complaint s/p lap HH repair and 270 wrap. tolerating clears. continue for 1 week then soft food for another week. continue ambulation and IS. home soon. Clinical Quality Measures DVT/VTE Risk/Contraindication: Risk Factor Score Per Nursin RFS Level Per Nursing on Admit: 2=Moderate DAMARIS RENEE MD August 27, 2018 16:24
[2018-08-27 17:00] VITALS: BP 137/67
== END 2018-08-27 17:00 | disposition home or self-care (01) ==
LOC: SDC 09:15 → 4TH 17:50 → SDC 08-27 17:00
PROVIDERS: ATTEND Surgery
DX: K21.0 Gastro-esophageal reflux disease with esophagitis (principal); K44.9 Diaphragmatic hernia without obstruction or gangrene; E11.9 Type 2 diabetes mellitus without complications; I25.10 Atherosclerotic heart disease of native coronary artery without angina pectoris; I10 Essential (primary) hypertension; E78.00 Pure hypercholesterolemia, unspecified; E03.9 Hypothyroidism, unspecified; K59.00 Constipation, unspecified; Z79.82 Long term (current) use of aspirin; Z79.84 Long term (current) use of oral hypoglycemic drugs; Z79.899 Other long term (current) drug therapy; Z95.5 Presence of coronary angioplasty implant and graft; Z86.010 Personal history of colon polyps
CPT/HCPCS: 36415; 80048; 82962; 85027; 94640; 94664; 94760

== ENCOUNTER → 2018-12-29 | Outpatient (CLI) | payer MEDICARE ==
[~2018-12-29] MED LIST changes: +HYDR473S50 PO; +ONDN4T PO
[2018-12-29 10:02] LABS: BILIRUBIN,TOTAL 0.5 MG/DL (0.1-1.0); CALCIUM 9.7 MG/DL (8.5-10.1); CREATININE SERUM 1.22 MG/DL (0.60-1.30); POTASSIUM 4.3 MMOL/L (3.6-5.0)
[2018-12-29 10:03] LABS: TOTAL PROTEIN 7.2 GM/DL (6.4-8.2)
[2018-12-29 14:49] LABS: CHOLESTEROL 152 MG/DL (< 200); HDL CHOLESTEROL 39 MG/DL (40-60); TRIGLYCERIDES 182 MG/DL (<150); VLDL CHOLESTEROL 36 MG/DL (5-40)
== END ==
LOC: LAB FS 09:08
PROVIDERS: ATTEND Internal Medicine Cardiovascular Disease
DX: I25.10 Atherosclerotic heart disease of native coronary artery without angina pectoris (principal); E11.9 Type 2 diabetes mellitus without complications; I10 Essential (primary) hypertension; I47.2 Ventricular tachycardia
CPT/HCPCS: 36415; 80053; 80061

== ENCOUNTER → 2019-01-06 | Outpatient (CLI) | payer MEDICARE ==
[2019-01-06 11:22] LABS: BASOPHILS % (AUTO) 0 % (0-10); EOSINOPHILS # (AUTO) 0.2 10^3/uL (0.0-0.3); EOSINOPHILS % (AUTO) 2 % (0-10); HEMATOCRIT 42 % (40-54); HEMOGLOBIN 13.3 G/DL (13.3-17.7); LYMPHOCYTES % (AUTO) 12 % (12-44); MEAN CORPUSCULAR HEMOGLOBIN 26 PG (25-34); MEAN CORPUSCULAR HGB CONC 32 G/DL (32-36); MEAN CORPUSCULAR VOLUME 83 FL (80-99); MEAN PLATELET VOLUME 9.7 FL (7.4-10.4); MONOCYTES # (AUTO) 0.4 X 10^3 (0.0-1.0); MONOCYTES % (AUTO) 5 % (0-12); NEUTROPHILS % (AUTO) 78 % (42-75); PLATELET COUNT 185 10^3/uL (130-400); RED CELL DISTRIBUTION WIDTH 14.9 % (10.0-14.5)
[2019-01-06 11:37] LABS: BUN/CREATININE RATIO 19; CALCIUM 9.6 MG/DL (8.5-10.1); CARBON DIOXIDE 24 MMOL/L (21-32); CHLORIDE 97 MMOL/L (98-107); CREATININE SERUM 1.13 MG/DL (0.60-1.30); GFR ESTIMATED > 60; GLUCOSE 283 MG/DL (70-105); POTASSIUM 4.4 MMOL/L (3.6-5.0); SODIUM 135 MMOL/L (135-145)
== END ==
LOC: LAB FS 10:49
PROVIDERS: ATTEND Pediatrics
DX: D72.829 Elevated white blood cell count, unspecified (principal); R79.89 Other specified abnormal findings of blood chemistry
CPT/HCPCS: 36415; 80048; 85025

== ENCOUNTER 2019-03-17 08:41 | Outpatient (CLI) | payer MEDICARE ==
[~2019-03-17] VITALS: Ht 180 cm; Wt 78.1 kg
[2019-03-17] MEDS ORDERED: SIME180C48 PO (15:04)
== END 2019-03-17 15:09 | disposition home or self-care (01) ==
LOC: PREOP 08:41
PROVIDERS: ATTEND Surgery
DX: Z01.818 Encounter for other preprocedural examination (principal)

== ENCOUNTER → 2019-04-12 | Outpatient (CLI) | payer MEDICARE ==
[~2019-04-12] MED LIST changes: +CATHETER FLUSH 10 ML SYR IV PRN; +SIME180C48 PO
--- NOTE | 2019-04-12 13:00 | Diagnostic Imaging Report ---
PROCEDURE: CT abdomen and pelvis without contrast. TECHNIQUE: Multiple contiguous axial images were obtained through the abdomen and pelvis without the use of intravenous contrast. Auto Exposure Controls were utilized during the CT exam to meet ALARA standards for radiation dose reduction. INDICATION: Elevated PSA, back and pelvic pain. COMPARISON: No priors. FINDINGS: Prostate is surgically absent. No mass or fluid collection at the prostatectomy bed. The pelvic sidewalls and ilioinguinal lymph node chains are unremarkable. No retroperitoneal or mesenteric adenopathy. There is right upper pole parapelvic and cortical cyst as well as exophytic cyst off of the left renal upper pole. No hydroureteronephrosis. No radiodense stone. The appendix is air containing and is normal. The gallbladder is surgically absent. Unopacified liver, adrenals, and pancreas are unremarkable. There is benign splenic calcified granuloma. IMPRESSION: No obstructive features, inflammatory process, or acute abnormalities. No findings of metastatic disease. Chronic findings as listed. Dictated by: Dictated on workstation # [id number]
--- NOTE | 2019-04-12 15:34 | Diagnostic Imaging Report ---
INDICATION: Prostate carcinoma. TECHNIQUE: The patient was administered 25.1 mCi of technetium 99m MDP intravenously and whole-body imaging was performed after a 3 hour delay. COMPARISON: No prior bone scans are available for comparison. FINDINGS: There is normal uptake of activity by the axial and appendicular skeleton. There is uptake by the kidneys with excretion into the urinary bladder. Mild uptake involving the medial compartments of the bilateral knees is noted, consistent with degenerative change. There is a tiny focus of mild uptake involving a left lower posterior rib, approximately the left 9th rib. No other suspicious foci are seen. IMPRESSION: Very mild uptake of a lower left posterolateral rib, indeterminate. No CT correlate is identified on the CT study performed earlier today. Continued followup is recommended. Dictated by: Dictated on workstation # [id number]
== END ==
LOC: CARD 10:55
PROVIDERS: ATTEND Urology
DX: C61 Malignant neoplasm of prostate (principal); M54.9 Dorsalgia, unspecified; R97.20 Elevated prostate specific antigen [PSA]; R10.2 Pelvic and perineal pain
CPT/HCPCS: 74176; 78306

== ENCOUNTER 2019-05-05 05:37 | Outpatient (CLI) | payer MEDICARE ==
[~2019-05-05] VITALS: Ht 180.3 cm; Wt 78.1 kg
[~2019-05-05 05:37] MED LIST changes: -CATHETER FLUSH 10 ML SYR IV PRN
== END 2019-05-05 14:20 | disposition home or self-care (01) ==
LOC: PREOP 05:37
PROVIDERS: ATTEND Surgery
DX: Z01.818 Encounter for other preprocedural examination (principal)

== ENCOUNTER → 2020-04-23 | Outpatient (CLI) | payer MEDICARE ==
[~2020-04-23] VITALS: Ht 177 cm; Wt 70.0 kg
[~2020-04-23] MED LIST changes: +CATHETER FLUSH 10 ML SYR IV PRN; -GLIM4TAB PO; +GLIM4TAB5 PO; +OMEP40CA27 PO; -OMEP40CA36 PO; -PANT40TA3 PO; +PANT40TA52 PO; +REGADENOSON 0.4 MG/5 ML SYR (LEXISCAN) IV ONE; +SIMV20TA26 PO; -SIMV20TA3 PO
[2020-04-23 09:13] VITALS: BP 157/75
--- NOTE | 2020-04-23 14:40 | Cardiology Stress Test Report ---
Stress Test Report Date of Procedure/Referring: Date of Procedure: Apr 23, 2020 PCP Janelle Martínez Admitting Physician Roque Ross MD Baseline Blood Pressure: Blood Pressure Systolic: 157 Blood Pressure Diastolic: 75 Baseline Vitals Vital Signs Date Time Temp Pulse Resp B/P (MAP) Pulse Ox O2 Delivery O2 Flow Rate FiO2 04/23/20 09:13 106 157/75 (102) 98 Summary After explaining the procedure to the patient, he signed a consent and then brought to the stress nuclear laboratory. Patient received 0.4 mg Lexiscan for stress test, ECG, heart rate and blood pressure were monitored continuously. Resting and stress dose of radio tracer were injected, imaging was acquired and reviewed in short axis, horizontal long axis and vertical long axis views. TID: 1.01 SSS: 3 SDS: 3 EF: 56 Patient tolerated test well Typical male pattern, diaphragmatic attenuation with mild decrease uptake in inferior wall with mild reversibility, no significant ischemia or infarction on SPECT images Normal LV size, EF 56% LUZ SORIANO MD Apr 23, 2020 14:40
== END ==
LOC: CARD 07:30
PROVIDERS: ATTEND Physician Assistant
DX: I25.10 Atherosclerotic heart disease of native coronary artery without angina pectoris (principal)
CPT/HCPCS: 78452; 93017; 93306; A9502

== ENCOUNTER 2021-11-07 05:38 | Outpatient (CLI) | payer MEDICARE ==
[~2021-11-07] VITALS: Ht 177.8 cm; Wt 77.3 kg
[~2021-11-07 05:38] MED LIST changes: -CATHETER FLUSH 10 ML SYR IV PRN; +OMEP20TA56 PO; -OMEP20TA7 PO; -OMEP40CA27 PO; +OMEP40CA6 PO; -REGADENOSON 0.4 MG/5 ML SYR (LEXISCAN) IV ONE; -TRIA1CAP4 PO; +TRIA1CAP84 PO
[2021-11-11] MEDS ORDERED: ASPI-999 PO (13:10)
[2021-11-11] MEDS ORDERED: FERR-84 PO (13:10)
[2021-11-11] MEDS ORDERED: CYAN250014 PO (13:10)
[2021-11-11] MEDS ORDERED: MTP25TSR PO (13:10)
[2021-11-11] MEDS ORDERED: LOSA50TA63 PO (13:10)
== END 2021-11-11 13:14 | disposition home or self-care (01) ==
LOC: PREOP 05:38
PROVIDERS: ATTEND Urology
DX: Z01.818 Encounter for other preprocedural examination (principal)

== ENCOUNTER 2021-11-13 06:40 | Day surgery (SDC) | payer MEDICARE ==
[~2021-11-13] VITALS: Ht 179 cm; Wt 77.3 kg
[2021-11-13] VITALS (11 sets, daily range): BP systolic 124–167; BP diastolic 68–83
[~2021-11-13 06:40] MED LIST changes: +ASPI-999 PO; +CYAN250014 PO; +FERR-84 PO; +LOSA50TA63 PO; +MTP25TSR PO
[2021-11-13] MEDS ORDERED: LACTATED RINGERS 1,000 ML IV PRN (06:45)
[2021-11-13] MEDS ORDERED: ceFAZolin INJECTION 1,000 MG VIAL IV ONE (06:45)
--- NOTE | 2021-11-13 07:16 | Progress Note-Pre Operative ---
Pre-Operative Progress Note H&P Reviewed The H&P was reviewed, patient examined and no changes noted. Date Seen by Provider: Nov 13, 2021 Time Seen by Provider: 07:15 Date H&P Reviewed: Nov 13, 2021 Time H&P Reviewed: 07:16 Pre-Operative Diagnosis: LANDRY WOOD MD Nov 13, 2021 07:16
--- NOTE | 2021-11-13 07:20 | Progress Note-Post Operative ---
Post-Operative Progess Note Surgeon (s)/Cold Rolling Supervisor (s) Surgeon LANDRY BOWDEN MD Cold Rolling Supervisor: NONE Pre-Operative Diagnosis PHIMOSIS Post-Operative Diagnosis SAME Procedure & Operative Findings Date of Procedure 11/13/21 Procedure Performed/Findings CIRCUMCISION Anesthesia Type GENERAL Estimated Blood Loss Estimated blood loss (mL): NEGLIGIBLE Specimens/Packing Specimens Removed NONE TO PATH Packing: NONE LANDRY BOWDEN MD Nov 13, 2021 07:20
--- NOTE | 2021-11-13 07:23 | Discharge Inst-Urology ---
Discharge Inst-Urology Reconcile Patient Problems Problems Reviewed?: Yes Final Diagnosis PHIMOSIS Patient Instructions/Follow Up Plan/Assessment/Instructions Please make appointment to been seen in office in 2 weeks. Rest till then OTC Neosporin+pain ointment TID for 5 days Ice to penis in RR and then at home for 6 hours and then PRN Wear light pants Keep bowels soft and moving Showers, no bath Increase oral fluids for 48 hours and then as needed. Diet as tolerated. If questions or concerns contact your physician Or seek help at emergency department. LANDRY BOWDEN MD Nov 13, 2021 07:23
[2021-11-13] MEDS ORDERED: fentaNYL INJ 100 MCG/2 ML AMP ONE (07:33)
[2021-11-13] MEDS ORDERED: SEVOFLURANE (ULTANE) 15 ML INHAL SOLN ONE ×2 (07:33→08:32)
[2021-11-13] MEDS ORDERED: ONDANSETRON 4 MG/2 ML (SDV) Z0FRAN ONE (07:33)
[2021-11-13] MEDS ORDERED: proPOfol 200 MG/20 ML (DIPRIVAN) VIAL IV ONE (07:33)
[2021-11-13] MEDS ORDERED: LIDOCAINE PF 2% 5 ML (XYLOCAINE) VIAL ONE (07:33)
[2021-11-13] MEDS ORDERED: OXYC1TAB11 PO (07:50)
[2021-11-13] MEDS ORDERED: NEOSPORIN + PAIN RELIEF CREAM 15 GM ONE (08:16)
--- NOTE | 2021-11-13 08:43 | Anesthesia-General Post-Op ---
General Patient Condition Mental Status/LOC: Same as Preop Cardiovascular: Satisfactory Nausea/Vomiting: Absent Respiratory: Satisfactory Pain: Controlled Complications: Absent Post Op Complications Complications None Follow Up Care/Instructions Patient Instructions None needed. Anesthesia/Patient Condition Patient Condition Patient is doing well, no complaints, stable vital signs, no apparent adverse anesthesia problems. No complications reported per nursing. DILCIA COLORADO CRNA Nov 13, 2021 08:43
[2021-11-13] MEDS ORDERED: MEPERIDINE (DEMEROL) INJ 50 MG/ML IVP ONE (08:45)
[2021-11-13] MEDS ORDERED: morphine INJ 10 MG/ML 1ML (SYR OR VIAL) IVP ONE (08:45)
[2021-11-13] MEDS ORDERED: ONDANSETRON 4 MG/2 ML (SDV) Z0FRAN IVP PRN (08:45)
--- NOTE | 2021-11-13 16:24 | OPERATIVE REPORT ---
DATE OF SERVICE: 11/13/2021 PREOPERATIVE DIAGNOSIS: Phimosis. POSTOPERATIVE DIAGNOSIS: Phimosis. OPERATION PERFORMED: Circumcision. SURGEON: Osmar Bowden MD. ANESTHESIA: General. COMPLICATIONS: None. DESCRIPTION OF PROCEDURE: Under satisfactory general anesthesia with the patient in supine position, genitalia were prepped and draped in the usual sterile fashion. Circular incision was made in the skin at the level of the russ glandis and the mucosa. The excess skin was sharply excised. Bleeders were cauterized and hemostasis was complete. The mucosa and the skin were approximated with interrupted 4-0 chromic catgut suture. Neosporin plus pain ointment was applied with a light dressing. The patient tolerated the procedure and anesthesia well and was sent to recovery room in stable condition. Job ID: [id number] DocumentID: [id number] Dictated Date: 11/13/2021 08:48:01 Finance Intern Date: 11/13/2021 16:23:31 Dictated By: OSMAR BOWDEN MD
== END 2021-11-13 11:05 | disposition home or self-care (01) ==
LOC: SDC 06:40
PROVIDERS: ATTEND Urology
DX: N47.1 Phimosis (principal)
CPT/HCPCS: 87081

== ENCOUNTER 2022-05-06 11:46 | Outpatient (RCR) | payer MEDICARE ==
[~2022-05-06 11:46] MED LIST changes: +OXYC1TAB11 PO; -SIME180C48 PO; +SIME180C68 PO
== END 2022-05-27 | disposition home or self-care (01) ==
LOC: ONC 11:46
PROVIDERS: ATTEND Internal Medicine Hematology & Oncology
DX: C61 Malignant neoplasm of prostate (principal)
CPT/HCPCS: G0103; G0463; 84153; 99204

== ENCOUNTER → 2022-05-22 | Outpatient (CLI) | payer MEDICARE | LOC: CARDFS 13:40 | PROVIDERS: ATTEND Physician Assistant | DX: I10 Essential (primary) hypertension (principal) | CPT/HCPCS: 93306 ==

== ENCOUNTER → 2022-12-01 | Outpatient (CLI) | payer MEDICARE ==
[~2022-12-01] MED LIST changes: +REGADENOSON 0.4 MG/5 ML SYR (LEXISCAN) IV ONE
[2022-12-01] MEDS: CATHETER FLUSH 10 ML SYR IVP PRN ×2 (10:22→11:10)
[2022-12-01 11:08] VITALS: BP 133/63
== END ==
LOC: CARD 12:00
PROVIDERS: ATTEND Internal Medicine Cardiovascular Disease
DX: I10 Essential (primary) hypertension (principal); I25.10 Atherosclerotic heart disease of native coronary artery without angina pectoris
CPT/HCPCS: 78452; 93017; A9502

== ENCOUNTER 2022-12-10 09:41 | Day surgery (SDC) | payer MEDICARE ==
[2022-12-10] VITALS (11 sets, daily range): BP systolic 108–163; BP diastolic 64–100
[~2022-12-10] VITALS: Ht 177.8 cm; Wt 76.8 kg
[~2022-12-10 09:41] MED LIST changes: -REGADENOSON 0.4 MG/5 ML SYR (LEXISCAN) IV ONE
[2022-12-10] MEDS ORDERED: NS IV 1000 ML 1,000 ML IV SCH (10:00)
[2022-12-10] MEDS ORDERED: HEParin (CATH LAB) 2,000 ML IV ONE (10:03)
[2022-12-10] MEDS ORDERED: NS IV 1000 ML 1,000 ML ONE ×2 (10:03→14:39)
[2022-12-10] MEDS ORDERED: LIDOCAINE 1% INJ 20 ML VIAL ONE (10:03)
[2022-12-10 10:31] LABS: HEMOGLOBIN 14.2 g/dL (13.3-17.7); MEAN PLATELET VOLUME 10.1 fL (9.0-12.2); WHITE BLOOD COUNT 7.7 10^3/uL (4.3-11.0)
[2022-12-10 10:41] LABS: PROTHROMBIN TIME PATIENT 13.4 SEC (12.2-14.7)
[2022-12-10 10:45] LABS: CLARITY,URINE CLEAR; COLOR,URINE YELLOW; GLUCOSE, URINE (UA) NEGATIVE (NEGATIVE); KETONES,URINE NEGATIVE (NEGATIVE); NITRITE,URINE NEGATIVE (NEGATIVE); PROTEIN,URINE TRACE (NEGATIVE)
[2022-12-10 10:47] LABS: BACTERIA,URINE NEGATIVE /HPF; BILIRUBIN,URINE NEGATIVE (NEGATIVE); LEUKOCYTE ESTERASE ,URINE NEGATIVE (NEGATIVE); RBC,URINE RARE /HPF; SQUAMOUS EPITHELIAL CELL,UR RARE /HPF
[2022-12-10] MEDS ORDERED: PANT40TA52 PO (10:47)
[2022-12-10] MEDS ORDERED: CYAN500T8 PO (10:47)
[2022-12-10] MEDS ORDERED: SITA100T12 PO (10:47)
[2022-12-10] MEDS ORDERED: LOSA25TA41 PO (10:47)
[2022-12-10] MEDS ORDERED: GLIM4TAB5 PO (10:47)
[2022-12-10] MEDS ORDERED: ACET325T38 PO (10:47)
[2022-12-10] MEDS ORDERED: SIMV20TA26 PO (10:47)
[2022-12-10] MEDS ORDERED: TRIA1TAB3 PO (10:47)
[2022-12-10] MEDS ORDERED: METF-397 PO (10:47)
[2022-12-10] MEDS ORDERED: ASPI-1238 PO (10:47)
[2022-12-10] MEDS ORDERED: LEVO137C4 PO (10:47)
[2022-12-10] MEDS ORDERED: PNT400TCR PO (10:47)
[2022-12-10] MEDS ORDERED: MTP25TSR PO (10:47)
--- NOTE | 2022-12-10 10:48 | Diagnostic Imaging Report ---
EXAMINATION: Chest 1 view HISTORY: Preoperative exam COMPARISON: None available. FINDINGS: The lungs are clear without edema or pneumonia. No pleural effusion or pneumothorax. Heart size is normal. IMPRESSION: 1. Clear lungs. Dictated by: Dictated on workstation # [id number]
[2022-12-10 11:03] LABS: ALBUMIN 4.1 GM/DL (3.2-4.5); BILIRUBIN,TOTAL 0.7 MG/DL (0.1-1.0); CALCIUM 9.3 MG/DL (8.5-10.1); CREATININE SERUM 1.47 MG/DL (0.60-1.30); POTASSIUM 3.7 MMOL/L (3.6-5.0)
[2022-12-10] MEDS ORDERED: fentaNYL INJECTION 100 MCG/2 ML VIAL ONE (13:47)
[2022-12-10] MEDS ORDERED: MIDAZOLAM INJ 5 MG/5 ML VIAL ONE (13:47)
--- NOTE | 2022-12-10 14:03 | Cardiac Procedure Note-CS/ASA ---
Pre-Procedure Note Pre-Op Procedure Note Date of Available H&P: Nov 27, 2022 Date H&P Reviewed: Dec 10, 2022 Time H&P Reviewed: 14:02 History & Physical: H&P Reviewed, Patient Examed, No changes noted Pre-Operative Diagnosis: PAD Moderate Sedation PreProcedure Time 14:03 ASA Score 3 Airway Lungs Heart ASA score ASA 1: a normal healthy patient ASA 2: a patient with a mild systemic disease (mid diabetes, controlled hypertension, obesity ASA 3: a patient with a severe systemic disease that limits activity (angina, COPD, prior Myocardial infarction) ASA 4: a patient with an incapacitating disease that is a constant threat to life (CHF, renal failure) ASA 5: a moribund patient not expected to survive 24 hrs. (ruptured aneurysm) ASA 6: a declared brain- patient whose organs are being harvested. For emergent operations, add the letter E after the classification Mallampati Classification Grade 3 Sedation Plan Analgesia, Amnesia, Plan communicated to team members, Discussed options with patient/fam, Discussed risks with patient/fam The patient is an appropriate candidate to undergo the planned procedure, sedation, and anesthesia. The patient immediately re-assessed prior to indication. LUZ SORIANO MD Dec 10, 2022 14:03
[2022-12-10] MEDS ORDERED: NITRO DRIP 25000 MCG/D5W 250 ML IV ONE (14:05)
[2022-12-10] MEDS ORDERED: HEParin 1000 UNIT/ML (10ML VIAL) FOR BOLUS ONE (14:05)
[2022-12-10] MEDS ORDERED: VERAPAMIL 5 MG/2 ML (CALAN) VIAL IV ONE (14:41)
[2022-12-10] MEDS ORDERED: PATIENT MAY USE OWN MEDS, ALL PO SCH (15:15)
[2022-12-10] MEDS ORDERED: CLOPIDOGREL 300 MG TABLET PO ONE (15:16)
[2022-12-10] MEDS ORDERED: ASPIRIN 325 MG TABLET ONE (15:16)
--- NOTE | 2022-12-10 15:26 | Peripheral Report ---
Peripheral Report Physician (s)/Learning And Development Specialist (s) Physician LUZ SORIANO MD Pre-Procedure Diagnosis Pre-Procedure Diagnosis: PAD Post-Procedure Note Procedure Start Date: Dec 10, 2022 Name of Procedure: Bilateral lower extremities runoff Third order Additional imaging x3 Atherectomy then balloon angioplasty to the left anterior tibial artery Findings/Procedure Note PROCEDURE NOTE: 87-year-old gentleman with known peripheral arterial disease, has been having increasing claudication with abnormal DANDRE bilaterally. Scheduled for peripheral angiogram. After explaining the procedure to the patient, all pros and cons were explained, all questions were answered. The patient signed the consent and then he was placed on the cardiac catheterization laboratory. The patient was placed on the cardiac catheterization laboratory. Groin was prepped SL fashion local anesthesia was used. Sheath placed in the right femoral artery, runoff to the right leg was done through the sheath then DSA imaging was done at the trifurcation level. Repeated DSA imaging at the level of the foot. Using a rim catheter I did perform runoff to the left leg. Patient was given 5000 units of heparin Storq wire was advanced and a straight catheter placed at the popliteal artery and DSA imaging to the left trifurcation and at the level of the foot was done then I decided to proceed with percutaneous intervention Sheath was exchanged to 70 cm 6 [place] sheath, I used a Nielsen cross catheter and advanced it to the distal anterior tibial artery did manual injection at the distal anterior tibial artery confirm presence of the catheter distally then I proceeded with Viper wire 0.014 placed at the distal anterior tibial artery then I used diamondback 1.45m311 and did 2 runs of the proximal anterior tibial artery then balloon angioplasty using [place] 3 x 80 mm. Preintervention patient has slow flow in the anterior tibial artery with 95% stenosis, post intervention there was normal flow with no residual stenosis. Sheath was exchanged again to 6 Nigerien short sheath and closure device deployed FINDINGS: Right lower extremity Right common iliac and common femoral arteries are patent Right SFA has multiple stents with mild in-stent restenosis nonobstructive disease Below the knee occlusion of the anterior tibial, posterior tibial and peroneal artery with collaterals slow flow down at the level of the foot Left lower extremity: Left common iliac and common femoral artery is patent Left SFA has patent stent with mild in-stent restenosis Left posterior tibial and peroneal artery are totally occluded with no collaterals Left anterior tibial artery has 95% proximal stenosis, successful atherectomy and balloon angioplasty with no residual stenosis CONCLUSIONS: Severe peripheral arterial disease with total occlusion on the right side below the knee with no reconstruction of vessels On the left side there is occlusion of the posterior tibial and peroneal artery with no reconstruction The only vessel on the left side that is patent is the anterior tibial artery with severe stenosis successful atherectomy with balloon angioplasty with no residual stenosis Above the knee bilaterally the SFA has patent stent with mild to moderate disease nonobstructive disease DISCUSSION AND RECOMMENDATIONS: Continue to maximize medical therapy Anesthesia Type: Conscious Sedation Estimated blood loss (mL): 35 ml Contrast Amount: 45 ml Total Radiation Dose: 120 mgy Post-Procedure Diagnosis Post-operative diagnosis: Claudication Peripheral arterial disease Hypertension Hyperlipidemia LUZ SORIANO MD Dec 10, 2022 15:26
[2022-12-10] MEDS: NS IV 1000 ML 1,000 ML IV SCH (16:44)
[2022-12-10] MEDS ORDERED: GLIMEPIRIDE 2 MG TABLET PO SCH (18:00)
[2022-12-10] MEDS ORDERED: NON-FORMULARY MEDICATION 1 EA EA (Simvastatin 20 MG) PO SCH (21:00)
[2022-12-10] MEDS ORDERED: PENTOXIFYLLINE 400 MG PO SCH (21:00)
[2022-12-10] MEDS ORDERED: NON-FORMULARY MEDICATION 1 EA EA (Glimepiride 4 MG) PO SCH (21:00)
[2022-12-11] VITALS: BP 132/78
[2022-12-11] MEDS: NS IV 1000 ML 1,000 ML IV SCH (01:15)
[2022-12-11 03:24] VITALS: BP 137/75
[2022-12-11 04:00] VITALS: BP 135/70
[2022-12-11] MEDS ORDERED: METF-397 PO (06:04)
[2022-12-11] MEDS ORDERED: CLOP75TA28 PO (06:04)
--- NOTE | 2022-12-11 06:06 | Discharge Inst-Post CATH ---
Discharge Inst-CATH/EP Problems Reviewed?: Yes Post Cardiac Cath/EP D/C Inst Follow Up/Plan Hold Metformin for [address] Elias in 2-4 weeks <b>CARDIAC CATH/EP PROCEDURE DISCHARGE INSTRUCTIONS</b> ACTIVITY * Go Home directly and rest. * Limit activity of the leg (or wrist if it was used) for 7 days including aerobics, swimming, jogging, bicycling, etc. * Restrict stair-climbing for 7 days if possible, if not, climb up with your non-cath leg, then bring together on the same step. * Avoid lifting, pushing, pulling or excessive movement of the affected extremity for 7 days. * Customary sexual activity may be resumed after 2 days-use caution not to use a position that strains or causes pain to the affected extremity. * No driving for 24 hours. * NO SMOKING. * Avoid straining for bowel movements for 7 days. * Gentle walking on level ground is allowed. * Returning to work will depend on the type of procedure and the results. Your doctor will discuss this with you. CALL YOUR DOCTOR FOR ANY OF THE FOLLOWING: *If bleeding from the puncture site occurs- Apply gentle pressure to site with clean cloth and call your doctor or EMS. * If a knot or lump forms under the skin, increases in size, or causes pain. * If bruising appears to be worsening or moving further down your leg instead of disappearing. * Temperature above 101 F. CARE OF YOUR GROIN INCISION; * Bruising or purple discoloration of the skin near the puncture site is common. * You may shower only, no bathtub bathing for 5 days. Be careful to avoid slipping as your leg may feel stiff. * If a closure device was used on your femoral artery, please see the attached guide regarding care of the device and your leg. * Leave dressing on FOR 24 hours. CARE OF YOUR WRIST INCISION; * Bruising or purple discoloration of the skin near the puncture site is common. * You may shower. * DO NOT submerge wrist. * Leave dressing on FOR 24 hours. LUZ ELIAS MD Dec 11, 2022 06:05
[2022-12-11] MEDS ORDERED: LEVOTHYROXINE 112 MCG TABLET PO SCH (06:30)
[2022-12-11] MEDS ORDERED: LEVOTHYROXINE 25 MCG TABLET PO SCH (06:30)
[2022-12-11 08:00] VITALS: BP 133/79
--- NOTE | 2022-12-11 08:13 | Cardiology Progress Note ---
Subjective Date Seen by Provider: Dec 11, 2022 Time Seen by Provider: 08:11 Subjective/Events-last exam Patient was seen and evaluated at bedside laying down comfortably, feeling better Review of Systems General: No Chills, No Night Sweats, No Fatigue, No Malaise, No Appetite, No Other HEENT: No Head Aches, No Visual Changes, No Eye Pain, No Ear Pain, No Dysphasia, No Sinus Congestion, No Post Nasal Drip, No Sore Throat, No Other Pulmonary: No Dyspnea, No Cough, No Pleuritic Chest Pain, No Other Cardiovascular: No: Chest Pain, Palpitations, Orthopnea, Paroxysmal Noc. Dyspnea, Edema, Lt Headedness, Other Objective-Cardiology Exam Last Set of Vital Signs Vital Signs 12/11/22 12/11/22 12/11/22 03:24 04:00 06:57 Temp 37.1 Pulse 85 Resp 9 B/P (MAP) 135/70 (91) Pulse Ox 97 O2 Delivery Room Air I&O Intake and Output 12/11/22 00:00 Intake Total 100 ml Output Total 350 ml Balance -250 ml Intake Oral 100 ml Output Urine Total 350 ml General: Alert, Oriented X3, Cooperative HEENT: Atraumatic, PERRLA Neck: Supple, No JVD, No Thyromegaly Lungs: Clear to Auscultation, Normal Air Movement Heart: Regular Rate, Normal S1, Normal S2, No Murmurs Abdomen: Normal Bowel Sounds, Soft, No Tenderness, No Hepatosplenomegaly, No Masses Extremities: No Clubbing, No Cyanosis, No Edema, Normal Pulses (On the left dorsalis pedis), No Tenderness/Swelling Skin: No Rashes, No Breakdown, No Significant Lesion Neuro: Normal Gait, Normal Speech, Strength at 5/5 X4 Ext, Normal Tone, Sensation Intact Psych/Mental Status: Mental Status NL, Mood NL Results Lab Laboratory Tests 12/10/22 10:23 A/P-Cardiology Admission Diagnosis Peripheral arterial disease Claudication Hypertension Hyperlipidemia Assessment/Plan Extensive peripheral arterial disease Status post peripheral angiogram on December 10, 2022 with atherectomy and balloon angioplasty to the left anterior tibial artery 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 Not amendable to intervention Medical therapy Claudication secondary to peripheral arterial disease Hypertension Hyperlipidemia Planning for discharge today LUZ SORIANO MD Dec 11, 2022 08:13
[2022-12-11] MEDS ORDERED: ATOR20TA49 PO (08:15)
[2022-12-11] MEDS ORDERED: LOSARTAN 25 MG TABLET PO SCH (09:00)
[2022-12-11] MEDS ORDERED: LEVOTHYROXINE SODIUM 137 MCG PO SCH (09:00)
[2022-12-11] MEDS ORDERED: CLOPIDOGREL 75 MG TABLET PO SCH (09:00)
[2022-12-11] MEDS ORDERED: ASPIRIN enteric coated 81MG TABLET PO SCH ×2 (09:00)
[2022-12-11] MEDS ORDERED: NON-FORMULARY MEDICATION 1 EA EA (Triamterene/Hydrochlorothiazid (Triamterene-Hctz 37.5-25 PO SCH (09:00)
[2022-12-11] MEDS ORDERED: NON-FORMULARY MEDICATION 1 EA EA (Sitagliptin Phosphate (Januvia) 100 MG) PO SCH (09:00)
[2022-12-11] MEDS ORDERED: TRIAMTERENE/HCTZ 75-50 (MAXZIDE,DYAZIDE) TABLET PO SCH (09:00)
[2022-12-11] MEDS ORDERED: PANTOPRAZOLE 40 MG (PROTONIX) TAB PO SCH (09:00)
[2022-12-11] MEDS ORDERED: LinaGLIPtin 5 MG TABLET PO SCH (09:00)
[2022-12-11 09:22] VITALS: BP 134/87
== END 2022-12-11 09:24 | disposition home or self-care (01) ==
LOC: CATH 09:41 → CSD 15:34 → CATH 12-11 09:24
PROVIDERS: ATTEND Internal Medicine Cardiovascular Disease
DX: I70.92 Chronic total occlusion of artery of the extremities (principal); I77.1 Stricture of artery; I10 Essential (primary) hypertension; I77.89 Other specified disorders of arteries and arterioles; I25.10 Atherosclerotic heart disease of native coronary artery without angina pectoris; I65.23 Occlusion and stenosis of bilateral carotid arteries; I35.1 Nonrheumatic aortic (valve) insufficiency; I47.20 Ventricular tachycardia, unspecified; I35.8 Other nonrheumatic aortic valve disorders; E78.5 Hyperlipidemia, unspecified; R00.1 Bradycardia, unspecified; E11.9 Type 2 diabetes mellitus without complications; Z87.891 Personal history of nicotine dependence; Z79.899 Other long term (current) drug therapy; Z79.84 Long term (current) use of oral hypoglycemic drugs
CPT/HCPCS: 37229; 71045; 80053; 80061; 81000; 85027; 85610; 85730; 87081; 93005; C1724; C1725; C1760; C1769 ×2; C1887 ×2; C1894 ×2; 36415